=== PATIENT | female | born 1965 | race Caucasian/White ===

== ENCOUNTER 2019-07-31 07:49 | Inpatient (IN) | payer BC, MEDICARE ==
[2019-07-27 15:03] LABS: Eosinophils # (auto) 0.1 uL; Hemoglobin 14.9 g/dL (12.2-16.2); Lymphocytes # (auto) 3.8 uL; Mean Corpuscular Hgb Conc. 33.8 g/dL (32.0-36.0); Monocytes # (auto) 0.6 uL; Nucleated Red Blood Cells % 0.1 %
[2019-07-27 15:04] LABS: Basophils # (auto) 0 uL; Basophils % (auto) 0.4 % (0.0-2.0); Eosinophils % (auto) 0.8 % (0.0-7.0); Hematocrit 44.2 % (36.0-46.0); Mean Corpuscular Hemoglobin 34.5 pg (28.0-32.0); Mean Corpuscular Volume 102.2 fL (80.0-100.0); Monocytes % (auto) 6.2 % (0.0-12.0); Neutrophils # (auto) 5.3 uL; Neutrophils % (auto) 53.6 % (37.0-80.0); Platelet Count (auto) 217 10^3/uL (140-450); Red Blood Cells 4.33 10^6/uL (4.0-5.20); Red Cell Distribution Width 13.5 % (11.8-14.3); White Blood Cell 9.9 10^3/uL (4.4-10.8)
[2019-07-27 15:15] LABS: Urine Bacteria FEW /hpf (None Seen); Urine Blood 1+ /uL (Negative); Urine Mucus FEW (None Seen); Urine Specific Gravity 1.012 (1.001-1.035); Urine WBC 1 /hpf (0 - 5)
[2019-07-27 15:28] LABS: Albumin 3.9 g/dL (3.4-5.0); BUN/Creatinine Ratio 14.5; Calcium 9.2 mg/dL (8.5-10.1); Potassium 3.9 mmol/L (3.5-5.1)
[2019-07-27 15:31] LABS: Bilirubin, Total 1.2 mg/dL (0.2-1.0); INR 0.97 (0.9-1.15); Partial Thromboplastin Time 24.8 sec (23.64-32.05); Total Protein 7.5 g/dL (6.4-8.2)
[~2019-07-31] VITALS: Ht 167.6 cm; Wt 93.6 kg
[~2019-07-31 07:49] MED LIST: GABA300C10 PO; IBUP800T24 PO; LISI-275 PO; PERCOT PO; SIMV-8 PO; UMEC1AER IN
[2019-07-31] MEDS ORDERED: ceFAZolin 1GM/50ML 100 ML IV ONE (08:22)
[2019-07-31] MEDS ORDERED: KETAMINE HCL 10 ML ONE (08:53)
[2019-07-31] MEDS ORDERED: fentaNYL CITRATE 5 ML ONE ×2 (08:53→11:03)
[2019-07-31] MEDS ORDERED: fentaNYL CITRATE 100 MCG/2 ML VL ONE (08:53)
[2019-07-31] MEDS ORDERED: ROCURONIUM 10MG/ML 10ML VIAL IV ONE (08:54)
[2019-07-31] MEDS ORDERED: MIDAZOLAM HCL 1MG/1ML-2 ML VIAL ONE (08:54)
[2019-07-31] MEDS ORDERED: ONDANSETRON HCL 4 MG/2 ML VIAL ONE (08:55)
[2019-07-31] MEDS ORDERED: PROPOFOL 10 MG/ML 20 ML IV ONE (08:55)
[2019-07-31] MEDS ORDERED: SODIUM CHLORIDE LOCK 10 ML ONE (08:55)
[2019-07-31] MEDS ORDERED: LIDOCAINE 1% HCL (LOCAL ANESTH.) INJ 20ML MDV ONE (08:56)
[2019-07-31] MEDS ORDERED: DOXAPRAM HCL 20 MG/ML 20ML VIAL INJ IV ONE (08:56)
[2019-07-31] MEDS ORDERED: MORPHINE SULFATE 4 MG/ML SYR/VIAL IV PRN (10:00)
[2019-07-31] MEDS ORDERED: METOCLOPRAMIDE HCL 5MG/ml INJ 2ml VIAL IV PRN (10:00)
[2019-07-31] MEDS ORDERED: fentaNYL CITRATE 100 MCG/2 ML VL IV PRN (10:00)
[2019-07-31] MEDS ORDERED: ROPIVACAINE 0.5% (5MG/ML) 20ML AMPULE IJ ONE (10:43)
[2019-07-31] MEDS ORDERED: HYDROmorphone HCL 2 MG/ML VL ONE ×2 (11:23→14:39)
[2019-07-31] MEDS ORDERED: LACTATED RINGER'S 1,000 ML IV SCH (13:46)
[2019-07-31] MEDS ORDERED: IPRATROPIUM BROM 0.5 MG/2.5ML INH SOL ONE (13:52)
[2019-07-31] MEDS ORDERED: ALBUTEROL SULF 2.5 MG/0.5ML(0.5%) NEB SOLN ONE (13:52)
[2019-07-31] MEDS: SODIUM CHLOR 0.9% PF (SALINE LOCK) 10ML VIAL/SYR IV SCH ×2 (14:00→22:08)
[2019-07-31] MEDS ORDERED: NITROGLYCERIN 0.4 MG SL TAB SL PRN (14:00)
[2019-07-31] MEDS ORDERED: ACETAMINOPHEN 325 MG TAB PO PRN (14:00)
[2019-07-31] MEDS ORDERED: MORPHINE SULF INJ 2 MG/ML SYRINGE 1ML IV PRN (14:00)
[2019-07-31] MEDS: HYDROmorphone HCL 2 MG/ML VL IV PRN ×4 (14:42→22:03)
[2019-07-31 15:30] VITALS: BP 110/68
[2019-07-31 16:02] LABS: Hematocrit 40.2 % (36.0-46.0); Hemoglobin 13.3 g/dL (12.2-16.2)
[2019-07-31 17:00] VITALS: BP 113/66
[2019-07-31] MEDS: ceFAZolin 1GM/50ML 50 ML IV SCH ×2 (18:30→22:04)
[2019-07-31 22:00] VITALS: BP 115/56
[2019-07-31] MEDS: DOCUSATE SOD 100 MG CAP PO SCH (22:00)
[2019-07-31] MEDS: HYDROcodone-ACET 10/325MG TAB PO PRN (23:32)
[2019-08-01] MEDS: HYDROmorphone HCL 2 MG/ML VL IV PRN ×7 (00:49→21:01)
[2019-08-01] MEDS: ceFAZolin 1GM/50ML 50 ML IV SCH (02:02)
[2019-08-01 05:00] VITALS: BP 114/69
[2019-08-01] MEDS: SODIUM CHLOR 0.9% PF (SALINE LOCK) 10ML VIAL/SYR IV SCH ×2 (06:06→14:14)
[2019-08-01 07:01] LABS: Hemoglobin 11.6 g/dL (12.2-16.2)
[2019-08-01 07:03] LABS: Hematocrit 34.1 % (36.0-46.0)
[2019-08-01] MEDS: HYDROcodone-ACET 10/325MG TAB PO PRN ×3 (07:29→23:50)
[2019-08-01] MEDS: DOCUSATE SOD 100 MG CAP PO SCH ×2 (07:30→21:46)
[2019-08-01 09:00] VITALS: BP 119/77
[2019-08-01] MEDS ORDERED: ENOXAPARIN SOD 40 MG/0.4 ML SYRINGE SC SCH (10:00)
[2019-08-01 12:00] VITALS: BP 125/64
[2019-08-01] MEDS ORDERED: hydrALAZINE HCL 20 MG/ML VL IV PRN (13:45)
[2019-08-01] MEDS ORDERED: IPRATROPIUM BROM 0.5 MG/2.5ML INH SOL NEB PRN (13:45)
[2019-08-01] MEDS ORDERED: ALBUTEROL SULF 2.5 MG/0.5ML(0.5%) NEB SOLN NEB PRN (13:45)
[2019-08-01] MEDS: GABAPENTIN 100 MG CAP PO SCH ×2 (16:40→21:46)
[2019-08-01 17:00] VITALS: BP 136/76
[2019-08-01 20:49] VITALS: BP 136/76
[2019-08-01 22:00] VITALS: BP 121/74
[2019-08-02] MEDS: HYDROmorphone HCL 2 MG/ML VL IV PRN ×4 (04:32→21:42)
[2019-08-02] MEDS: GABAPENTIN 100 MG CAP PO SCH ×3 (05:36→21:43)
[2019-08-02] MEDS: SODIUM CHLOR 0.9% PF (SALINE LOCK) 10ML VIAL/SYR IV SCH ×4 (05:38→21:42)
[2019-08-02 05:58] LABS: Basophils # (auto) 0 uL; Basophils % (auto) 0.1 % (0.0-2.0); Eosinophils # (auto) 0 uL; Eosinophils % (auto) 0.1 % (0.0-7.0); Hematocrit 32.6 % (36.0-46.0); Hemoglobin 11.4 g/dL (12.2-16.2); Lymphocytes # (auto) 1.5 uL; Mean Corpuscular Hemoglobin 35.3 pg (28.0-32.0); Mean Corpuscular Hgb Conc. 34.9 g/dL (32.0-36.0); Mean Corpuscular Volume 101.1 fL (80.0-100.0); Monocytes # (auto) 1.2 uL; Monocytes % (auto) 11.9 % (0.0-12.0); Neutrophils # (auto) 7.5 uL; Neutrophils % (auto) 72.9 % (37.0-80.0); Platelet Count (auto) 148 10^3/uL (140-450); Red Blood Cells 3.22 10^6/uL (4.0-5.20); Red Cell Distribution Width 13.1 % (11.8-14.3); White Blood Cell 10.3 10^3/uL (4.4-10.8)
[2019-08-02 06:00] VITALS: BP 126/71
[2019-08-02 06:12] LABS: BUN/Creatinine Ratio 12.1; Calcium 8.6 mg/dL (8.5-10.1); Potassium 3.5 mmol/L (3.5-5.1)
[2019-08-02] MEDS ORDERED: LIDOCAINE 1% HCL (LOCAL ANESTH.) INJ 20ML MDV ONE (07:27)
[2019-08-02] MEDS ORDERED: SUCCINYLCHOLINE CHLORIDE 20 MG/ML 10ML VIAL IV ONE (07:27)
[2019-08-02] MEDS ORDERED: ROPIVACAINE 0.5% (5MG/ML) 20ML AMPULE IJ ONE (07:31)
[2019-08-02] MEDS ORDERED: ALBUTEROL SULF 2.5 MG/0.5ML(0.5%) NEB SOLN NEB ONE (07:45)
[2019-08-02] MEDS ORDERED: IPRATROPIUM BROM 0.5 MG/2.5ML INH SOL NEB ONE (07:45)
[2019-08-02] MEDS ORDERED: MIDAZOLAM HCL 1MG/1ML-2 ML VIAL ONE (08:03)
[2019-08-02] MEDS ORDERED: ROCURONIUM 10MG/ML 10ML VIAL IV ONE (08:07)
[2019-08-02] MEDS ORDERED: PROPOFOL 10 MG/ML 20 ML IV ONE (08:08)
[2019-08-02] MEDS ORDERED: METOCLOPRAMIDE HCL 5MG/ml INJ 2ml VIAL ONE (08:08)
[2019-08-02] MEDS ORDERED: ceFAZolin 1GM/50ML 100 ML IV ONE (08:08)
[2019-08-02] MEDS ORDERED: fentaNYL CITRATE 100 MCG/2 ML VL ONE ×2 (08:32→09:06)
[2019-08-02] MEDS: DOCUSATE SOD 100 MG CAP PO SCH ×2 (09:26→21:43)
[2019-08-02] MEDS: FAMOTIDINE 20 MG TAB PO SCH (09:26)
[2019-08-02] MEDS ORDERED: ONDANSETRON HCL 4 MG/2 ML VIAL IV PRN ×2 (10:30→12:15)
[2019-08-02] MEDS ORDERED: NALOXONE HCL 0.4 MG/ML VIAL IV PRN (10:30)
[2019-08-02] MEDS ORDERED: hydrALAZINE HCL 20 MG/ML VL IV PRN (10:30)
[2019-08-02] MEDS ORDERED: HYDROmorphone HCL 2 MG/ML VL IV PRN ×2 (10:30)
[2019-08-02] MEDS ORDERED: DOCUSATE SOD 100 MG CAP PO PRN (12:15)
[2019-08-02 13:00] VITALS: BP 127/79
[2019-08-02 16:46] VITALS: BP 128/72
[2019-08-02] MEDS: HYDROcodone-ACET 10/325MG TAB PO PRN ×2 (16:54→22:55)
[2019-08-02] MEDS: ceFAZolin 1GM/50ML 50 ML IV SCH (18:11)
[2019-08-02 22:00] VITALS: BP 141/70
[2019-08-03] MEDS: HYDROmorphone HCL 2 MG/ML VL IV PRN ×5 (00:23→18:10)
[2019-08-03] MEDS: ceFAZolin 1GM/50ML 50 ML IV SCH ×4 (00:36→17:45)
[2019-08-03] MEDS: OXYCODONE W/ ACETAMINOPHEN 5/325MG TABLET PO PRN ×3 (04:50→20:15)
[2019-08-03 05:00] VITALS: BP 124/66
[2019-08-03] MEDS: SODIUM CHLOR 0.9% PF (SALINE LOCK) 10ML VIAL/SYR IV SCH ×3 (06:12→22:00)
[2019-08-03] MEDS: GABAPENTIN 100 MG CAP PO SCH ×3 (06:13→22:00)
[2019-08-03 06:42] LABS: Hemoglobin 10.1 g/dL (12.2-16.2)
[2019-08-03 06:44] LABS: Hematocrit 29.6 % (36.0-46.0)
[2019-08-03 09:00] VITALS: BP 118/71
[2019-08-03] MEDS: DOCUSATE SOD 100 MG CAP PO SCH ×2 (09:29→22:00)
[2019-08-03] MEDS: ENOXAPARIN SOD 40 MG/0.4 ML SYRINGE SC SCH (09:29)
[2019-08-03] MEDS: FAMOTIDINE 20 MG TAB PO SCH (09:29)
[2019-08-03 13:00] VITALS: BP 123/50
[2019-08-03 17:00] VITALS: BP 112/61
[2019-08-03] MEDS: TEMAZEPAM 15 MG CAP PO PRN (22:00)
[2019-08-03 22:21] VITALS: BP 114/61
[2019-08-04] MEDS: HYDROmorphone HCL 2 MG/ML VL IV PRN ×9 (00:50→23:20)
[2019-08-04] MEDS: OXYCODONE W/ ACETAMINOPHEN 5/325MG TABLET PO PRN ×2 (04:40→11:59)
[2019-08-04 05:07] VITALS: BP 104/63
[2019-08-04] MEDS: ceFAZolin 1GM/50ML 50 ML IV SCH ×2 (05:58)
[2019-08-04] MEDS: SODIUM CHLOR 0.9% PF (SALINE LOCK) 10ML VIAL/SYR IV SCH ×3 (05:58→20:53)
[2019-08-04] MEDS: GABAPENTIN 100 MG CAP PO SCH ×3 (05:59→20:54)
[2019-08-04 09:00] VITALS: BP 110/63
[2019-08-04] MEDS: FAMOTIDINE 20 MG TAB PO SCH (09:46)
[2019-08-04] MEDS: ENOXAPARIN SOD 40 MG/0.4 ML SYRINGE SC SCH (09:46)
[2019-08-04] MEDS: DOCUSATE SOD 100 MG CAP PO SCH ×3 (09:47→20:54)
[2019-08-04 10:28] LABS: Hemoglobin 10.1 g/dL (12.2-16.2)
[2019-08-04 10:30] LABS: Hematocrit 29.4 % (36.0-46.0)
[2019-08-04 13:00] VITALS: BP 128/56
[2019-08-04 17:00] VITALS: BP 116/74
[2019-08-04] MEDS: TEMAZEPAM 15 MG CAP PO PRN (20:54)
[2019-08-04 22:00] VITALS: BP 125/61
[2019-08-05] MEDS: OXYCODONE W/ ACETAMINOPHEN 5/325MG TABLET PO PRN ×4 (02:25→16:26)
[2019-08-05 03:33] VITALS: BP 112/71
[2019-08-05 04:55] VITALS: BP 103/68
[2019-08-05 05:38] LABS: Hematocrit 26.9 % (36.0-46.0); Hemoglobin 9.3 g/dL (12.2-16.2)
[2019-08-05 05:56] LABS: Potassium 3.1 mmol/L (3.5-5.1)
[2019-08-05 06:01] LABS: BUN/Creatinine Ratio 14.3; Calcium 8.7 mg/dL (8.5-10.1)
[2019-08-05] MEDS: GABAPENTIN 100 MG CAP PO SCH ×3 (06:52→20:55)
[2019-08-05] MEDS: SODIUM CHLOR 0.9% PF (SALINE LOCK) 10ML VIAL/SYR IV SCH ×3 (06:52→20:55)
[2019-08-05 09:00] VITALS: BP 129/63
[2019-08-05] MEDS: DOCUSATE SOD 100 MG CAP PO SCH ×2 (10:00→20:55)
[2019-08-05] MEDS: HYDROmorphone HCL 2 MG/ML VL IV PRN ×4 (10:01→20:30)
[2019-08-05] MEDS: FAMOTIDINE 20 MG TAB PO SCH (10:02)
[2019-08-05] MEDS: ENOXAPARIN SOD 40 MG/0.4 ML SYRINGE SC SCH (10:04)
[2019-08-05 13:00] VITALS: BP_SYST 122; BP_SYST 168; BP_DIAS 75; BP_DIAS 95
[2019-08-05] MEDS ORDERED: POTASSIUM EFFERVESENT TAB 25 MEQ PO ONE (14:00)
[2019-08-05 17:00] VITALS: BP 119/65
[2019-08-05 22:01] VITALS: BP 129/60
[2019-08-06] MEDS: OXYCODONE W/ ACETAMINOPHEN 5/325MG TABLET PO PRN ×3 (03:00→12:36)
[2019-08-06 05:00] VITALS: BP 126/70
[2019-08-06] MEDS: GABAPENTIN 100 MG CAP PO SCH ×2 (05:29→15:06)
[2019-08-06] MEDS: SODIUM CHLOR 0.9% PF (SALINE LOCK) 10ML VIAL/SYR IV SCH ×2 (05:29→12:30)
[2019-08-06 05:55] LABS: Basophils # (auto) 0 uL; Basophils % (auto) 0.3 % (0.0-2.0); Eosinophils # (auto) 0.2 uL; Eosinophils % (auto) 1.5 % (0.0-7.0); Hematocrit 28.3 % (36.0-46.0); Hemoglobin 9.6 g/dL (12.2-16.2); Lymphocytes # (auto) 2.2 uL; Lymphocytes % (auto) 21.2 % (10.0-50.0); Mean Corpuscular Hemoglobin 34.5 pg (28.0-32.0); Mean Corpuscular Hgb Conc. 33.8 g/dL (32.0-36.0); Monocytes # (auto) 0.7 uL; Monocytes % (auto) 6.9 % (0.0-12.0); Neutrophils # (auto) 7.2 uL; Neutrophils % (auto) 70.1 % (37.0-80.0); Platelet Count (auto) 245 10^3/uL (140-450); Red Blood Cells 2.78 10^6/uL (4.0-5.20); Red Cell Distribution Width 13.1 % (11.8-14.3); White Blood Cell 10.2 10^3/uL (4.4-10.8)
[2019-08-06 06:25] LABS: Potassium 3.5 mmol/L (3.5-5.1)
[2019-08-06 06:33] LABS: Calcium 8.9 mg/dL (8.5-10.1)
[2019-08-06] MEDS: DOCUSATE SOD 100 MG CAP PO SCH (08:10)
[2019-08-06] MEDS: FAMOTIDINE 20 MG TAB PO SCH (08:11)
[2019-08-06] MEDS: ENOXAPARIN SOD 40 MG/0.4 ML SYRINGE SC SCH (08:11)
[2019-08-06 09:00] VITALS: BP 144/80
[2019-08-06] MEDS: HYDROmorphone HCL 2 MG/ML VL IV PRN (09:26)
[2019-08-06 12:56] VITALS: BP 144/80
[2019-08-06 13:00] VITALS: BP 131/73
== END 2019-08-06 15:55 | disposition home health service (06) | DRG 468 ==
LOC: SUR 07:49 → WEST WING 07:50
PROVIDERS: ADMIT Orthopaedic Surgery; ATTEND Internal Medicine
PROC: 0MBM0ZZ Excision of Left Hip Bursa and Ligament, Open Approach (ICD-10-PCS; 2019-07-31)
PROC: 0SRB03A Replacement of Left Hip Joint with Ceramic Synthetic Substitute, Uncemented, Open Approach (ICD-10-PCS; principal; 2019-07-31 10:06)
PROC: 0SWB0JZ Revision of Synthetic Substitute in Left Hip Joint, Open Approach (ICD-10-PCS; 2019-08-02)
DX: M16.12 Unilateral primary osteoarthritis, left hip (principal); J45.909 Unspecified asthma, uncomplicated; I10 Essential (primary) hypertension; G62.9 Polyneuropathy, unspecified; E78.5 Hyperlipidemia, unspecified; M70.62 Trochanteric bursitis, left hip; D63.8 Anemia in other chronic diseases classified elsewhere; E66.9 Obesity, unspecified; Z68.33 Body mass index [BMI] 33.0-33.9, adult
CPT/HCPCS: 36415; 71045; 73501; 73502; 80048; 80053; 81001; 83735; 85014; 85018; 85025; 85610; 85730; 86850; 86900; 86901; 94640; 97110; 97116; 97163; 97530; G0378; J0330; J0690; J2001; J2250; J2405; J2704